=== PATIENT | female | born 1975 | race Caucasian/White ===

== ENCOUNTER 2016-09-14 17:19 | Observation (INO) ==
[2016-09-14] MEDS ORDERED: predniSONE 20 MG TABLET PO ONE (17:39)
[2016-09-14] MEDS ORDERED: Ipratropium/Albuterol Neb 3 ML IH ONE (17:39)
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
[2016-09-14] MEDS ORDERED: Albuterol Neb 0.63 MG/3 ML VIAL IH ONE (18:44)
[2016-09-14] MEDS ORDERED: Ipratropium/Albuterol Neb 3 ML ONE ×2 (18:47→18:51)
[2016-09-14 19:30] LABS: Basophils # 0.1 K/mcL (0.0-0.2); Eosinophils # 0.3 K/mcL (0.0-0.6); Eosinophils % 2.6 %; Hematocrit 40.2 % (35.3-44.9); Immature Granulocytes % 0.3 % (0-4); Lymphocytes # 2.9 K/mcL (0.6-4.6); Lymphocytes % 28.5 %; Mean Corpuscular HGB Conc 32.3 g/dL (31.6-35.5); Mean Corpuscular Hemoglobin 28.7 pg (28.0-33.3); Mean Corpuscular Volume 88.7 fL (83.0-100.0); Mean Platelet Volume 10.3 fL (9.4-12.4); Monocytes # 0.7 K/mcL (0.0-1.3); Monocytes % 6.8 %; Neutrophils # 6.2 K/mcL (1.6-8.9); Platelet Count 304 K/mcL (140-400); Red Blood Count 4.53 M/mcL (3.82-4.97); Segmented Neutrophils % 60.8 %
[2016-09-14 19:42] LABS: BUN/Creatinine Ratio 12 (6-26); Blood Urea Nitrogen 9 mg/dL (7-20); Calcium 9.1 mg/dL (8.6-10.8); Carbon Dioxide 25 mEq/L (19-29); Chloride 104 mEq/L (98-109); Glucose 94 mg/dL (70-99); Osmolality,Calculated 286 (280-300); Potassium 3.8 mEq/L (3.5-4.5); Sodium 139 mEq/L (136-145); eGFR For African Americans > 60 (> 60); eGFR For Non-African Americans > 60 (> 60)
[2016-09-14] MEDS ORDERED: Naloxone 0.4 MG/ML INJ IVP PRN (21:31)
[2016-09-14] MEDS ORDERED: Albuterol 2.5 MG/3 ML NEBULIZER IH PRN (21:31)
[2016-09-14] MEDS ORDERED: *HR* Promethazine 25 MG/ML VIAL IVP PRN (21:31)
[2016-09-14] MEDS ORDERED: Magnesium Sulfate 2 GM in D5% in Water 100 ML IVPB ONE (21:31)
[2016-09-14] MEDS ORDERED: Benzonatate 100 MG CAPSULE PO PRN (21:31)
[2016-09-14] MEDS ORDERED: Acetaminophen 325 MG TABLET PO PRN (21:31)
[2016-09-14] MEDS ORDERED: Dextromethorphan Polistrx(12h) 30 MG/5 ML UDC PO STA (21:31)
[2016-09-14] MEDS ORDERED: Ketorolac 30 MG/ML VIAL IVP PRN (21:44)
[2016-09-14] MEDS ORDERED: Melatonin 3 MG TABLET PO SCH (21:45)
[2016-09-14] MEDS ORDERED: 0.9 % Sodium Chloride 1,000 ML IVC SCH (21:45)
--- NOTE | 2016-09-14 21:49 | Internal Med History&Physical ---
Date of Encounter: 09/15/16 Time of Encounter: 22:00 Assessment and Plan (1) Acute respiratory failure with hypoxia Current visit: Yes Status: Acute . (2) Acute exacerbation of COPD with asthma Current visit: Yes Status: Acute . (3) Acute bronchitis and bronchiolitis Current visit: Yes Status: Acute . (4) Tobacco abuse disorder Current visit: Yes Status: Acute . (5) Polysubstance abuse Current visit: Yes Status: Acute . (6) Asthma exacerbation Current visit: Yes Status: Acute . (7) SIRS (systemic inflammatory response syndrome) Current visit: Yes Status: Acute . Internal Medicine - H&P: HPI Chief complaint: Difficulty breathing Admitted From: Emergency Dept Plans for Post Hospital Care: Home History of present illness: Ms. Barbour is a 41 year old female with history significant for polysubstance abuse/IVDU and non-IVDU, h/o seizure dis unspecified, MSK/low back pain/deg osteoarthritis, RAD/asthma, nicotine dependency admitted to [facility] via the emergency department when she presents with complaints of a persistent cough and difficulty in breathing. She reported a presentation a three-day history of severe intermittently productive cough and myalgias . Denied overt fever, chills sweats vomiting or diarrhea. All wheezing was apparent to her. Sputum has been predominantly white but has thickened then became more yellowish of late. No blood seen in sputum. Findings started the patient afebrile at 97.1 degree Fahrenheit pulse 85 respirations 18 BP 96/52 O2 saturation 91-96% by pulse oximetry room air. WBC 10.2 hemoglobin 13 platelets 304,000. Differential normal. Basic metabolic panel normal. BUN 9 creatinine 0.73. Chest x-ray demonstrated no acute or active cardiopulmonary process. Pulmonary impressions suggest acute exacerbation of chronic obstructive pulmonary disease with asthmatic bronchitis. This in the setting of chronic tobacco usage noncompliance with the previous prescribed bronchodilator therapy and smoking cessation recommendations. He was acutely ill with conversational dyspnea. Systemic inflammatory response syndrome criteria and however is not met at the time of this admission nor his sepsis criteria. Work up and treatment will proceed comprehensively. The patient was visited and interviewed and examined. Cumulative laboratory and radiographic data base will be considered and discussed. Pertinent ancillary medical records including ECW and PCI documentation when available was reviewed and considered. Given the patient's presenting concerns, past medical history, clinical findings and symptoms, she is admitted at this time will undergo further evaluation and disposition. Orders were written as per Computerized physician emergency room orderly system.......................................................................... .................... Consultative opinion will be sought as clinical circumstances justify. Pain management needs will be addressed. Laboratory /radiographic data base will be updated as appropriate. Studies include: Cultures of blood urine sputum, urine HCG, pt/inr, aptt, cardiac injury panel, BNP, UA, UDS, metabolic and hematologic panel, magnesium, phosphorus, ionized calcium, thyroid panel, lipid profile, A1c, C-peptide, CRP, sedimentation rate, respiratory infection profile, respiratory virus panel, blood gas, lactic acid, serologies, etc. Precautions: Aspiration, fall, delirium protocol/surveillance initiated. Telemetry with continuous hemodynamic monitoring and pulse oximetry initiated. Empiric antibody coverage: Intravenous Doxycycline pending culture data. Special studies: CT/CTA chest, chest x-ray, telemetry, EKG. Pulmonary toilet: Incentive spirometry, aerosol bronchodilator, mucolytic, antitussive, supplemental oxygen. Corticosteroid therapy. CPAP/BiPAP supplemental oxygen delivery PRN. Aerosol Mucomyst therapy PRN. Fluid and electrolyte repletion efforts will proceed. Careful attention to fluid balance and renal recovery will be emphasized. Avoidance of nephrotoxic exposure and adverse drug drug interaction in the setting of impaired renal function will be monitored closely. Acute coronary syndrome protocol/surveillance initiated. DVT and PUD prophylaxis initiated: PPI therapy, intermittent pneumatic cuffs/ TEDs. Subcutaneous heparin/Lovenox. Early ambulation will be encouraged. Immunization updates recommended. Influenza and pneumococcal vaccinations as part of ongoing preventative healthcare recommendations strongly recommended. Smoking cessation counseling briefly addressed. Patient will except nicotine substitution during this admission.. Advanced care directive discussion briefly addressed. Patient does not declare any healthcare restrictions at this time. Cardiovascular risk appraisal and cardiovascular risk reduction efforts will be emphasized. Physical /occupational therapy may be counseled to evaluate patient's functional capacity and progressive mobility if her circumstances justify. Sliding scale insulin coverage, ADA dietary restraint and schedule an as-needed basis fingerstick glucose assessments were initiated. Nutrition/diabetes education counseling may be considered as circumstances justify. Outpatient medication schedules will be reviewed, confirmed and facilitated as appropriate. Reconciliation of home treatments including adjustments, substitutions and reintroduction into the treatment regimen will address necessary maintenance therapies for chronic pre-existing medical conditions. Plan of care has been reviewed and discussed in detail with the patient. Questions addressed. Hospital course dictated by clinical findings, treatment response and potential consultative interventions. Patient is a risk for further acute clinical decline due to her findings, chief complaints and comorbid conditions. Condition is serious. Prognosis is guarded. CODE STATUS is full. Past Med Surg Social Fam HX - Past Medical History Source: old records reviewed Medical history: arthritis, asthma, seizures, other (History of drug abuse, opiate-type dependence (non-IVDU and IVDU).) Psychiatric history: other - Past Surgical History Surgical History: , cholecystectomy, other - Social History Smoking Status: Current every day smoker Smokeless Tobacco Status: No Alcohol use: none Drug use: opiates, IVDU, other Occupational status: unemployed Current living situation: Home, With Family Activity Level: Independent ambulation, Mostly sedentary Recent Out of Country Travel Within the Last 8 Weeks: No Exposure or Possible Exposure to Illness During Travel: No - Family History Father Living Status: Still Living Hx Family Cardiac Disorders: Yes Hx Family Respiratory Disorders: Yes (copd) Internal Medicine - H&P: Meds Albuterol Sulfate [Albuterol Inhaler] 2 puff IH Q4HR PRN #1 hfa.aer.ad 09/14/16 [Rx] Buprenorphine HCl/Naloxone HCl [Suboxone 8 mg-2 mg Sl Film] 8 mg SL BID [History] PredniSONE 60 mg PO DAILY #15 tablet 09/14/16 [Rx] Allergies Penicillins [PCN] Allergy (Verified 08/16/16 02:44) Anaphylaxis All Systems PM: A 10-system review of systems was performed and is negative for pertinent findings except as documented above in the HPI. Allergies Allergy/AdvReac Type Severity Reaction Status Date / Time Penicillins [PCN] Allergy Anaphylaxis Verified 08/16/16 02:44 Patient Problems (Last Updated 09/14/16 @ 21:49 by Wilmer Stephens MD) Acute bronchitis and bronchiolitis (Acute Medical) J20.9, J21.9 Acute exacerbation of COPD with asthma (Acute Medical) J44.1, J45.901 Acute respiratory failure with hypoxia (Acute Medical) J96.01 Asthma exacerbation (Acute Medical) J45.901 Bronchitis (Acute Medical) J40 Tobacco abuse disorder (Acute Medical) Z72.0 Abscess of skin or subcutaneous tissue (Inactive Medical) L02.91 Drug abuse (Inactive Medical) F19.10 Low back pain (Inactive Medical) M54.5 Opiate withdrawal (Inactive Medical) F11.23 Seizure-like activity (Inactive Medical) R56.9 Vomiting (Inactive Medical) R11.10 - Constitutional Constitutional: as per HPI, fatigue, malaise, other, no chills, no fever(s), no night sweats - EENT Eyes: as per HPI, no change in vision, no discharge, no pain, no photophobia Ears: as per HPI, no ear discharge, no ear pain, no tinnitus Nose, mouth and throat: as per HPI, no dysphagia, no nasal discharge, no neck pain, no sore throat - Cardiovascular Cardiovascular ROS IM: as per HPI, no chest pain, no diaphoresis, no dyspnea, no lightheadedness, no palpitations, no syncope - Respiratory Respiratory: as per HPI, cough, dyspnea, dyspnea on exertion, wheezing, chest congestion, excessive phlegm production, change in phlegm color, other, no hemoptysis - Gastrointestinal Gastrointestinal: as per HPI, no abdominal pain, no diarrhea, no hematemesis, no hematochezia, no melena, no nausea, no vomiting - Genitourinary Genitourinary: as per HPI, no change in urinary stream, no dysuria, no flank pain, no hematuria - Musculoskeletal Musculoskeletal ROS IM: as per HPI, no numbness, no tingling - Integumentary Integumentary IM: as per HPI, no rash, no unusual bruising - Neurological Neurological ROS: as per HPI, no confusion, no convulsions, no focal weakness, no numbness, no tingling, no tremor(s) - Psychiatric Psychiatric: as per HPI - Endocrine Endocrine IM: as per HPI - Hematologic/Lymphatic Hematologic/Lymphatic: as per HPI, no easy bruising - Allergic/Immunologic Allergic/Immunologic: as per HPI - Constitutional Vitals: Temp Pulse Resp BP Pulse Ox 97.6 F 86 18 106/69 92 09/14/16 21:19 09/14/16 21:19 09/14/16 21:19 09/14/16 21:19 09/14/16 21:19 Vital Signs Temp Pulse Resp BP Pulse Ox 09/14/16 21:19 97.6 F 86 18 106/69 92 09/14/16 20:55 18 105/55 09/14/16 20:45 86 18 108/64 94 09/14/16 19:47 85 18 96/52 96 09/14/16 18:53 20 91 09/14/16 18:04 18 93/53 91 09/14/16 17:26 98.1 F 83 18 93/53 91 Intake and Output 09/14/16 09/14/16 09/14/16 07:59 15:59 23:59 Other: Weight 63.503 kg Patient Weight 09/14/16 23:59 Weight 63.503 kg General appearance: Present: disheveled, mild distress, A&O X 3, answers questions appropriately - Head Head exam: Present: atraumatic, normocephalic - Eye Eye exam: Present: EOMI, PERRL, conjuntiva pink, sclera anicteric Pupils: Present: normal accommodation, PERRL - ENT ENT exam: Present: mucous membranes moist, normal oropharynx - Neck Neck exam general surgery: Present: supple, trachea midline. Absent: lymphadenopathy - Respiratory Respiratory exam: Present: chest wall tenderness, decreased breath sounds, rhonchi, wheezes. Absent: accessory muscle use, CTAB, rales - Cardiovascular Cardiovascular exam: Present: distant heart sounds, RRR, +S1, +S2. Absent: diastolic murmur, gallop, rubs, systolic murmur - GI/Abdominal GI/Abdominal exam: Present: normal bowel sounds, soft, no peritoneal signs. Absent: distended, tenderness - Extremities Exam Extremities exam: Present: warm, radial pulses palpable and symetrical. Absent : calf tenderness, cyanotic, pedal edema - Neurological Exam Neurological exam: Present: alert, altered, CN II-XII intact, oriented X3, no focal deficits. Absent: pronater drift, facial droop, speech deficit - Expanded Neurological Exam Neurological exam expanded: Present: inattentive, protecting the airway. Absent : expressive aphasia, receptive aphasia, tremor Patient oriented to: Present: person, place, time Speech: Present: garbled Coma Scale Eye Opening: To Voice Coma Scale Motor Response: Obeys Commands Coma Scale Verbal Response: Confused Coma Scale Total: 13 - Psychiatric Psychiatric exam: Present: normal affect, normal mood - Skin Skin exam: Present: dry, intact, warm Internal Med - H&P Results - Labs CBC & Chem 7: 09/15/16 05:29 09/15/16 05:29 Labs: Short CBC 09/14/16 Range/Units 19:23 WBC 10.2 (4.3-11.1) K/mcL Hgb 13.0 (11.5-15.4) g/dL Hct 40.2 (35.3-44.9) % Plt Count 304 (140-400) K/mcL Neutrophils # 6.2 (1.6-8.9) K/mcL BMP 09/14/16 Range/Units 19:23 Sodium 139 (136-145) mEq/L Potassium 3.8 (3.5-4.5) mEq/L Chloride 104 (98-109) mEq/L Carbon Dioxide 25 (19-29) mEq/L BUN 9 (7-20) mg/dL Creatinine 0.73 (0.57-1.11) mg/dL Glucose 94 (70-99) mg/dL Calcium 9.1 (8.6-10.8) mg/dL Laboratory Results WBC 10.2 K/mcL (4.3-11.1) 09/14/16 19:23 RBC 4.53 M/mcL (3.82-4.97) 09/14/16 19:23 Hgb 13.0 g/dL (11.5-15.4) 09/14/16 19:23 Hct 40.2 % (35.3-44.9) 09/14/16 19:23 MCV 88.7 fL (83.0-100.0) 09/14/16 19:23 MCH 28.7 pg (28.0-33.3) 09/14/16 19:23 MCHC 32.3 g/dL (31.6-35.5) 09/14/16 19:23 RDW 13.0 % (11.5-14.5) 09/14/16 19:23 Plt Count 304 K/mcL (140-400) 09/14/16 19:23 MPV 10.3 fL (9.4-12.4) 09/14/16 19:23 Immature Gran % 0.3 % (0-4) 09/14/16 19:23 Seg Neutrophils % 60.8 % 09/14/16 19:23 Lymphocytes % 28.5 % 09/14/16 19:23 Monocytes % 6.8 % 09/14/16 19:23 Eosinophils % 2.6 % 09/14/16 19:23 Basophils % 1.0 % 09/14/16 19:23 Neutrophils # 6.2 K/mcL (1.6-8.9) 09/14/16 19:23 Lymphocytes # 2.9 K/mcL (0.6-4.6) 09/14/16 19:23 Monocytes # 0.7 K/mcL (0.0-1.3) 09/14/16 19:23 Eosinophils # 0.3 K/mcL (0.0-0.6) 09/14/16 19:23 Basophils # 0.1 K/mcL (0.0-0.2) 09/14/16 19:23 Sodium 139 mEq/L (136-145) 09/14/16 19:23 Potassium 3.8 mEq/L (3.5-4.5) 09/14/16 19:23 Chloride 104 mEq/L (98-109) 09/14/16 19:23 Carbon Dioxide 25 mEq/L (19-29) 09/14/16 19:23 BUN 9 mg/dL (7-20) 09/14/16 19:23 Creatinine 0.73 mg/dL (0.57-1.11) 09/14/16 19:23 Est GFR ( Amer) > 60 (> 60) 09/14/16 19:23 Est GFR (Non-Af Amer) > 60 (> 60) 09/14/16 19:23 BUN/Creatinine Ratio 12 (6-26) 09/14/16 19:23 Glucose 94 mg/dL (70-99) 09/14/16 19:23 Calculated Osmolality 286 (280-300) 09/14/16 19:23 Calcium 9.1 mg/dL (8.6-10.8) 09/14/16 19:23 Impressions Chest X-Ray 09/14/16 17:39 IMPRESSION: No acute process. D/ / Garcia Azar MD / Garcia Azar MD Interpreting Provider: Garcia Azar MD 09/15/16 05:29 VBG pH 7.51 H VBG pCO2 30 L VBG pO2 202 H VBG HCO3 23.9 Abnormal Labs 09/15/16 09/15/16 09/15/16 05:00 05:29 05:29 WBC 14.4 H Neutrophils # 12.7 H VBG pH 7.51 H VBG pCO2 30 L VBG pO2 202 H Potassium Carbon Dioxide Glucose Albumin Globulin Albumin/Globulin Ratio Ur Amphetamines Screen Positive H U Benzodiazepines Scrn Positive H U Marijuana (THC) Screen Positive H 09/15/16 05:29 WBC Neutrophils # VBG pH VBG pCO2 VBG pO2 Potassium 5.2 H D Carbon Dioxide 16 L Glucose 126 H Albumin 2.9 L Globulin 3.9 H Albumin/Globulin Ratio 0.7 L Ur Amphetamines Screen U Benzodiazepines Scrn U Marijuana (THC) Screen - Attending Attestation Allergies Penicillins [PCN] Allergy (Verified 08/16/16 02:44) Anaphylaxis Home Medications Medication Instructions Recorded Confirmed Type Buprenorphine HCl/Naloxone HCl 8 mg SL BID 09/14/16 09/14/16 History [Suboxone 8 mg-2 mg Sl Film] Prescriptions Medication Instructions Recorded Type Albuterol Sulfate [Albuterol 2 puff IH Q4HR PRN #1 hfa.aer.ad 09/14/16 Rx Inhaler] PredniSONE 60 mg PO DAILY #15 tablet 09/14/16 Rx I & O 09/11/16 09/12/16 09/13/16 09/14/16 23:59 23:59 23:59 23:59 Weight 63.503 kg Medications Discontinued Medications Albuterol Sulfate (Accuneb) 0.63 mg IH ONCE ONE Stop: 09/14/16 18:45 Last Admin: 09/14/16 18:52 Dose: Albuterol/Ipratropium (Duoneb) 9 ml IH ONCE ONE PRN Reason: Protocol Stop: 09/14/16 17:40 Last Admin: 09/14/16 18:15 Dose: 9 ml Albuterol/Ipratropium (Duoneb) Confirm Administered Dose 3 ml .ROUTE .STK-MED ONE Stop: 09/14/16 18:48 Last Admin: 09/14/16 18:52 Dose: 3 ml Albuterol/Ipratropium (Duoneb) Confirm Administered Dose 3 ml .ROUTE .STK-MED ONE Stop: 09/14/16 18:52 Last Admin: 09/14/16 21:42 Dose: Prednisone (Prednisone) 60 mg PO ONCE ONE Stop: 09/14/16 17:40 Last Admin: 09/14/16 18:06 Dose: 60 mg Microbiology Results 09/14/16 17:38 Nasopharyngeal Influenza Types A,B Antigen (ELAINA) - Final Nursing Notes 09/14/16 18:59 Nurse Note by Kajal Carlin RN gave report to Doug COLEMAN who is assuming care of pt at this time. Initialized on 09/14/16 18:59 - END OF NOTE Orders 09/14/16 17:38 Flu Antigen [Influenza A/B Antigen] [VIR] Stat Comment: ELAINA Source: Nasopharyngeal Specimen: Send someone from the department to collect Specimen Description: 09/14/16 17:39 XR chest 1V portable [XR] Stat Mode Of Transportation: Stretcher Reason For Exam: cough, dyspnea Order Doctor: Gunnar Yee Exam Performed At:: [facility] Ipratropium/Albuterol Neb [Duoneb] 9 ml IH ONCE ONE PredniSONE 60 mg PO ONCE ONE 09/14/16 18:44 Albuterol Neb [AccuNeb] 0.63 mg IH ONCE ONE 09/14/16 18:47 Ipratropium/Albuterol Neb [Duoneb] 3 ml .ROUTE .STK-MED ONE 09/14/16 18:51 Ipratropium/Albuterol Neb [Duoneb] 3 ml .ROUTE .STK-MED ONE 09/14/16 19:[address] Stat Comment: Reason for Visit: asthma exacerbation with bronchitis 09/14/16 19:23 BMP [Basic Metabolic Panel] Stat Comment: Specimen: Send someone from the department to collect Complete Blood Count [HEME] Stat Comment: Specimen: Send someone from the department to collect 09/14/16 21:31 Apply anti-embolic stockings [RC] .NOW Aspiration precautions [RC] .CONTINUOUS BIPAP [RC] PRN Continuous pulse oximetry [RC] .ONCE Comment: Falls precautions ([place] [RC] ONCE Incentive Spirometry [RC] .6 TIMES PER HR WHILE AWAKE Vital Signs Assessment [RC] Q4H C-Reactive Protein Stat Specimen: Send someone from the department to collect Comment: Drug Screen, Urine [UCHEM] Stat Specimen: Pre-Collection Label Comment: Lactic Acid ([facility] Only) Stat Specimen: Send someone from the department to collect Comment: Respiratory Infection Panel [MOLMIC] Stat Specimen: Send someone from the department to collect Urinalysis reflex Microscopic [URIN] Stat Specimen: Send someone from the department to collect Comment: Venous Blood Gas Stat Specimen: Send someone from the department to collect Comment: Viral Culture,Respiratory [RM] Stat Specimen: Send someone from the department to collect Comment: ELAINA Source: Nasopharyngeal Specimen Description: Acetaminophen [Tylenol] 650 mg PO Q6HR PRN Albuterol Neb [Proventil Neb] 2.5 mg IH Q2H PRN Benzonatate [Tessalon] 200 mg PO TID PRN Dextromethorphan Polistrx(12h) [Delsym 12-HR] 60 mg PO NOW STA Docusate [Colace] 100 mg PO BID PRN GuaiFENesin ER [Mucinex] 1,200 mg PO ONCE ONE Magnesium Sulfate 2 gm D5% in Water [Dextrose 5%] 100 ml IVPB ONCE Naloxone [Narcan] 0.4 mg IVP Q2MIN PRN Promethazine [Phenergan] 12.5 mg IVP Q6HR PRN Resuscitation Status: Active [RES] Routine Resuscitation Status: Full Code Comment: 09/14/16 21:32 COPD Discharge Checklist [RC] .atdischarge Cardiac monitoring [RC] .ONCE Cardiac monitoring [RC] CONT Head of bed elevation [RC] .ONCE Oxygen via nasal cannula Nasal Cannula 2 lpm Comment: Notify provider if oxygen initiated. Titrate O2 to main O2 sat greater than: 92% Peripheral IV [RC] CONT Consult to Nurse Navigator [CONS] Routine Comment: Consult to Nurse Navigator [CONS] Routine Comment: 09/14/16 21:33 Placement to Observation Routine Physician Instructions: Reason for Visit: Difficulty breathing Is VTE Prophylaxis Indicated?: Yes 09/14/16 21:35 Bed rest [RC] .CONT Physician Instructions: Bed rest w/bathroom privileges [RC] .PRN Cardiac Monitoring Med/Surg [RC] .CONT Telemetry Reason: ACS/CP Continuous pulse oximetry [RC] CONT Comment: Measure intake and output [RC] QSHIFT Measure weight [RC] DAILY Oxygen via nasal cannula Nasal Cannula 2 lpm Comment: Titrate O2 to main O2 sat greater than: 92% RT has an order or consult [RC] NOW 09/14/16 21:40 BIPAP/CPAP On/Off Times [RC] ONCE 09/14/16 21:44 Ketorolac [Toradol] 30 mg IVP Q6HR PRN 09/14/16 21:45 HCG,Routine Test Stat Specimen: Send someone from the department to collect Comment: 0.9 % Sodium Chloride 1,000 ml IVC 50 mls/hr Buprenorphine HCl/Naloxone HCl [Suboxone 8 mg-2 mg Sl Film] 8 mg SL BID How will this medication be supplied?: Pharmacy to Subsitute Doxycycline 100 mg PO BID Melatonin 3 mg PO HS Montelukast [Singulair] 10 mg PO HS Nicotine Patch [Nicoderm] 21 mg TD DAILY 09/14/16 23:00 Ipratropium/Albuterol Neb [Duoneb] 3 ml IH QIDR 09/14/16 Dinner Regular Diet Diet Modifications: 09/15/16 04:00 Complete Blood Count [HEME] AM 0400 Specimen: Send someone from the department to collect Comment: Comprehensive Metabolic Panel AM 0400 Specimen: Send someone from the department to collect Comment: Magnesium AM 0400 Specimen: Send someone from the department to collect Comment: Phosphorous AM 0400 Specimen: Send someone from the department to collect Comment: 09/15/16 09:00 Famotidine [Pepcid] 20 mg PO BID GuaiFENesin ER [Mucinex] 600 mg PO BID PredniSONE 40 mg PO DAILY Patient Problems (Last Updated 09/14/16 @ 17:47 by Gunnar Yee DO) Asthma exacerbation (Acute) Bronchitis (Acute) Vital Signs Temp Pulse Resp BP Pulse Ox 09/14/16 21:19 97.6 F 86 18 106/69 92 09/14/16 20:55 18 105/55 09/14/16 20:45 86 18 108/64 94 09/14/16 19:47 85 18 96/52 96 09/14/16 18:53 20 91 09/14/16 18:04 18 93/53 91 09/14/16 17:26 98.1 F 83 18 93/53 91 Laboratory Results 09/14/16 09/14/16 Range/Units 19:23 19:23 WBC 10.2 (4.3-11.1) K/mcL RBC 4.53 (3.82-4.97) M/mcL Hgb 13.0 (11.5-15.4) g/dL Hct 40.2 (35.3-44.9) % MCV 88.7 (83.0-100.0) fL MCH 28.7 (28.0-33.3) pg MCHC 32.3 (31.6-35.5) g/dL RDW 13.0 (11.5-14.5) % Plt Count 304 (140-400) K/mcL MPV 10.3 (9.4-12.4) fL Immature Gran % 0.3 (0-4) % Seg Neutrophils % 60.8 % Lymphocytes % 28.5 % Monocytes % 6.8 % Eosinophils % 2.6 % Basophils % 1.0 % Neutrophils # 6.2 (1.6-8.9) K/mcL Lymphocytes # 2.9 (0.6-4.6) K/mcL Monocytes # 0.7 (0.0-1.3) K/mcL Eosinophils # 0.3 (0.0-0.6) K/mcL Basophils # 0.1 (0.0-0.2) K/mcL Sodium 139 (136-145) mEq/L Potassium 3.8 (3.5-4.5) mEq/L Chloride 104 (98-109) mEq/L Carbon Dioxide 25 (19-29) mEq/L BUN 9 (7-20) mg/dL Creatinine 0.73 (0.57-1.11) mg/dL Est GFR ( Amer) > 60 (> 60) Est GFR (Non-Af Amer) > 60 (> 60) BUN/Creatinine Ratio 12 (6-26) Glucose 94 (70-99) mg/dL Calculated Osmolality 286 (280-300) Calcium 9.1 (8.6-10.8) mg/dL Assessments/Treatments Collect Specimen Start: 09/14/16 17: 30 Freq: Status: Complete Document 09/14/16 17:41 [id number] (Rec: 09/14/16 17:46 [id number]) Collect Specimen Right Nasal culture/flu swab collected as Yes ordered Specimen(s) labled in presence of Yes patient Specimen sent to lab via Tube system ED Discharge Assessment Start: 09/14/16 17: 30 Freq: Status: Active Document 09/14/16 20:55 KJB (Rec: 09/14/16 20:57 [id number]) ED Discharge Assessment ED Discharge Disposition Admitted ED Condition on Discharge Fair Med Rec/Patient Pharmacy Completed? Yes Admitted to 3B Bed assigned 3B39 Transported by wound care technician Transported with IV Report given to Nurse Care transferred to (name/credentials) Marcio RN Information relayed patient's care treatments medications given condition recent/anticipated changes Clinical Documentation Summary Provided Yes Pain Scale 0 Pain Scale Used Standard (1-10) Blood Pressure 105/55 Heart rate 85 Respiratory Rate 18 Oxygen Delivery Nasal Cannula Oxygen Saturation 94 Critical Care Minutes 0 ED Pain Assessment Start: 09/14/16 17: 30 Freq: Status: Complete Document 09/14/16 17:41 [id number] (Rec: 09/14/16 17:46 [id number]) Pain Assessment Pain Present Reports No Pain ED URI/Sore Throat Assessment Start: 09/14/16 17: 30 Freq: Status: Complete Document 09/14/16 17:41 [id number] (Rec: 09/14/16 17:46 [id number]) URI/Sore Throat Sepsis Infection Criteria Present suspected infection Sepsis SIRS Criteria none Sepsis Screen No Definite Risk Sepsis Action Taken no action required Symptoms/Complaint Fever Cough Sore Throat Onset couple days Duration Constant Improves With Nothing Worsens With Nothing Able to Tolerate Fluids By Mouth Yes Associated Symptoms Chills Myalgias Treatments Prior to Arrival None Level Of Consciousness Awake Alert Appropriate Follows Commands Patient Orientation Person Place Time Respiratory Depth Normal Respiratory Effort Normal for Patient Spontaneous Non-Labored Respiratory Pattern Regular Anterior & Posterior Bilateral Throughout Breath Sounds Diminished Expiratory Wheezing Cough Description Involuntary Productive Frequency Intermittent Sputum Amount Scant Oropharynx Condition Normal [place] and Moist Smooth Exudate ED Comment Pt states that she has had generalized body aches as well . Fall Precautions Acute Start: 09/14/16 21: 05 Freq: Q12H Status: Active Document 09/14/16 21:05 CEP (Rec: 09/14/16 21:17 [id number] [id number]) [facility] Fall Risk Assessment Tool High Fall Risk-Implement High Fall Risk Patient is deemed high fall interventions per protocol risk per protocol (seizure precaution) Fall Risk Category High Risk Fall Risk Interventions Low Risk Interventions Bed in lowest position Top side rails up x 2 Secure brake on bed Use properly fitting non-skid footwear Call light and frequently needed objects within reach Encourage patients/families to call for assistance when needed Fall education including risk assessment, injury risk and routine/ Inspect environment for safety and communication risk Family History-Meaningful Use Start: 09/14/16 21: 05 Freq: .Once Status: Active Document 09/14/16 21:05 [facility] (Rec: 09/14/16 21:12 [id number] Family History-Meaningful Use Father Living Status Still Living Hx Family Cardiac Disorders Yes Hx Family Respiratory Disorders Yes: copd IV-Invasive Line Management Start: 09/14/16 21: 05 Freq: Q8H Status: Active Document 09/14/16 21:05 [facility] (Rec: 09/14/16 21:18 [id number] IV/Invasive Line Assessment Left Antecubital Date of Insertion 09/14/16 Time of Insertion 20:53 Reason for Line Insertion/Rationale for Replace Lost Fluids Insertion Provide Access for IV Medication(s) Gauge (gauge) 18 IV Catheter Type Peripheral IV Site Observation Patent Cowley Dressing Applied Transparent Dressing Line Care P-Locked Labs drawn from Line* No Observation Admission Assessment Start: 09/14/16 21: 05 Freq: .once Status: Active Document 09/14/16 21:05 [facility] (Rec: 09/14/16 21:12 [id number]) General Questions Date of Arrival on Unit 09/14/16 Time of Arrival on Unit 21:07 Admitted From Emergency Dept Chief Complaint brianne Onset of Chief Complaint 09/11/16 History Provided By Patient Orientation To Call Light Bed Phone TV Bathroom Smoking Policy Visiting Hours Procedures ID Bracelet On Emergency Contact Name kade kauffman Relationship to Patient mom Emergency Contact Bands applied ID band Allergy band Patient Health Portal Patient was provided information on Yes accessing patient portal Patient Requests Portal Enrollment No Reason No Portal Enrollment Patient Declines Advance Directives Advance Directives No Advance Directives Information Provided Yes Patient Rights Copy of Rights Given and Verbalizes Yes Understanding Tobacco Free [place]: Copy of AHS Yes Statement Given and Patient Verbalizes Understanding Communication Ability Primary Language Citizen Of The [place] Preferred Language Citizen Of [place] Coil Winder Repair Required No Ability to Follow Directions Excellent Able to Read Yes Able to Write Yes Communication Tools None Caregiver Communication Skills No Impairment Impairment Learning Preferences Discussion Hearing Ability Normal Visual Assistive Devices None Pain Assessment Do You Have Any Ongoing (Chronic) Pain No Problems Educated on Pain Scale Yes Past Medical History Medical history asthma seizures other Female Surgical History cholecystectomy Psychiatric history no psych history Smoking Status Current every day smoker Smokeless Tobacco Status No Alcohol use none Drug use opiates IVDU Occupational status employed Current living situation Home With Family Activity level Independent ambulation Recent Out of Country Travel Within the No Last 8 Weeks Exposure or Possible Exposure to Illness No During Travel Functional Assessment Employment Status [employer] Employed Eating (Feeding) Ability Independent Bathing Ability Independent Upper Body Dressing Ability Independent Lower Body Dressing Ability Independent Ambulation Ability Independent Toileting Ability Independent Bladder Continent Bowel Continent Normal Bowel Pattern Daily Psychosocial Over Age 75 and Lives Alone or Over Age No 80 Potential Need for Follow-up Care (ECF, No Home Health, ECT) Developmentally Disabled or History of No Mental Health Problems Diagnosis with Director Blood Bank Need or No Terminal Implications Responsible for Care of Others No Financial Concerns No Suspected Abuse or Neglect No Suicidal or Homicidal Ideation No Social Service Consult Needed No Oxygen administration Start: 09/14/16 21: 05 Freq: Q12H Status: Active Document 09/14/16 21:05 [facility] (Rec: 09/14/16 21:18 [id number] Oxygen Oxygen Delivery Method Room Air Patient Belongings Start: 09/14/16 21: 05 Freq: .ONCE Status: Active Document 09/14/16 21:05 [facility] (Rec: 09/14/16 21:12 [id number] Patient Belongings Belongings With Patient on Admission Yes At Bedside Patient Belongings Cell Phone Jewelry Pants Shirt Sneakers Patient Rounding Start: 09/14/16 17: 30 Freq: Status: Active Document 09/14/16 19:47 KJB (Rec: 09/14/16 19:49 KJB [id number]) Patient Rounding Safety Call Light Within Reach Bed Position Low Bed Brake On Side Rails Up X1 Are the Floors Free From Trip Hazards? Yes Is the Room Free From Clutter? Yes Rounding Completed? Yes Patient Rounding Updated patient/family on Plan of Care Patient Awake Patient Verbalizes Pain/Symptoms No Improvement Patient Rounding Start: 09/14/16 21: 05 Freq: Q1H Status: Active Document 09/14/16 21:05 CEP (Rec: 09/14/16 21:23 CEP [id number]) Hourly Rounding Hourly Rounding Checked for Patient Positioning Patient Personal Items Placed Within Reach Hourly Rounding Completed Yes Patient Awake Is family present? Yes Comment got patient snacks and drink Safety Call Light Within Reach Bed Position Low Phone Within Reach Bed Brake On Side Rails Up X2 Are the Floors Free From Trip Hazards? Yes Is the Room Free From Clutter? Yes Turn and Postion Bedrest No Turn Q 2HR No RT Respiratory Medication Delivery Start: 09/14/16 18: 04 Freq: Status: Complete Document 09/14/16 18:04 CD (Rec: 09/14/16 18:05 CD [id number]) Respiratory Therapy Pre Assessment SPO2 91 Heart rate 91 Respiratory Rate 18 BP (mm Hg) 93/53 Oxygen Delivery Method Room Air Anterior & Posterior Bilateral Throughout Breath Sounds Inspiratory Rhonchi Expiratory Rhonchi Scattered Treatment Modality Nebulizer Therapy Respiratory Medications Duoneb Home/Other Medication x3 Medication Delivery Device Mask Treatment Tolerance Good Sub. Aerosol/MDI/DPI Treatment* Yes Post RT Medication Delivery Post Heart rate 93 Post Respiratory Rate (breaths/min) 18 Anterior & Posterior Bilateral Throughout Post Breath Sounds Inspiratory Rhonchi Expiratory Rhonchi Scattered Treatment Outcome No Change Document 09/14/16 18:53 MTD (Rec: 09/14/16 18:54 MTD [id number]) Respiratory Therapy Pre Assessment SPO2 91 Heart rate 84 Respiratory Rate 20 Oxygen Delivery Method Room Air FIO2 21 Anterior & Posterior Bilateral Throughout Breath Sounds Diminished Expiratory Wheezing Treatment Modality Nebulizer Therapy Respiratory Medications Duoneb Medication Delivery Device Mask Treatment Tolerance Excellent Sub. Aerosol/MDI/DPI Treatment* Yes Post RT Medication Delivery Post Heart rate 88 Post Respiratory Rate (breaths/min) 20 Anterior & Posterior Bilateral Throughout Post Breath Sounds Diminished Expiratory Wheezing Treatment Outcome No Change Comment Tolerated well RT Cough/Suction Cough Description None Sputum Amount None Saline lock insertion/management Start: 09/14/16 20: 53 Freq: Status: Active Document 09/14/16 20:53 KJB (Rec: 09/14/16 20:53 KJB [id number]) IV Insertion/Site Assessment IV Attempt 1 Successful Successful Blood drawn and sent to Lab No Left Antecubital IV Established MACHINE PAN GREASER No Date of Insertion 09/14/16 Time of Insertion 20:53 Reason for IV Insertion Replace Lost Fluids Provide Access for IV Medication(s) IV Catheter Type Peripheral IV Gauge (gauge) 18 Site Observation Patent Cowley Dressing Applied Transparent Dressing Patient Tolerance Tolerated Well Sepsis Screening Start: 09/14/16 21: 05 Freq: Q8H Status: Active Document 09/14/16 21:05 [facility] (Rec: 09/14/16 21:23 [id number]) Sepsis Screening Sepsis Infection Criteria Present none Sepsis SIRS Criteria none Sepsis Screen No Definite Risk Sepsis Action Taken no action required Skin Risk Assessment Scale Start: 09/14/16 21: 05 Freq: Q12H Status: Active Document 09/14/16 21:05 [facility] (Rec: 09/14/16 21:23 [id number]) Skin Risk Assessment Scale Moisture Risk Rarely Moist Sensory Perception No Impairment Activity Risk Walks Frequently Mobility Risk No Limitations Nutrition Risk Excellent Friction & Shear Risk No Apparent Problem Skin Risk Total Score (points) 23 Teaching Record Start: 09/14/16 21: 05 Freq: Q12H Status: Active Document 09/14/16 21:05 [facility] (Rec: 09/14/16 21:23 [id number] Teaching Record: General Education Topics Hospital Environment Response Verbalize understanding Methods Discussion Recipient Patient Education Provided: Details education event management consultant light, asking for assistance as needed, hospital procedures Triage Start: 09/14/16 17: 26 Freq: Status: Complete Document 09/14/16 17:26 BDS (Rec: 09/14/16 17:30 BDS [id number]) Triage Chief Complaint triage ED Upper Respiratory Infection Patient Stated Complaint cough, body aches JAMES 4 Onset (ago) day(s) General Appearance alert Work Related Injury? No Mode of arrival ambulatory Source patient Limitations no limitations Ebola Risk: Travel/Contact With Anyone No From Affected Area/s Has Patient Experienced Ebola Symptoms No Temperature (97.6 F-99.6 F) 98.1 F Pulse Rate 83 Respiratory Rate 18 Blood Pressure 93/53 O2 Sat by Pulse Oximetry 91 Height 1.57 m Weight 63.503 kg Weight Measurement Method Stated by Patient Pain Scale 0 Pain Scale Used Standard (1-10) Medical history asthma seizures other Female surgical history cholecystectomy Psychiatric history no psych history Smoking Status Current every day smoker Smokeless Tobacco Status No Alcohol Use none Drug Use opiates IVDU Patient resides with/at Significant Other Safety Concerns Feels Safe At This Time Do you currently feel hopless, have No thoughts of self harm, or thoughts of harming others History of fall in last 14 days? 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 Vital Signs Assessment Start: 09/14/16 17: 30 Freq: Status: Active Document 09/14/16 19:47 KJB (Rec: 09/14/16 19:49 KJB [id number]) ED Vital Signs Pain Reported Pain Reported Pain Scale 2 Pain Scale Used Standard (1-10) Blood Pressure 96/52 Blood Pressure Location Right Arm Source Automatic Cuff Position Sitting Pulse Rate 85 Rhythm Regular Strength Normal Respiratory Rate 18 Depth Normal Effort Normal for Patient Spontaneous Non-Labored Pattern Regular Pulse Oximetry 96 Oxygen Delivery Room Air Document 09/14/16 20:45 KJB (Rec: 09/14/16 20:45 KJB [id number]) ED Vital Signs Pain Reported No Pain Reported Pain Scale 0 Pain Scale Used Standard (1-10) Blood Pressure 108/64 Blood Pressure Location Right Arm Source Automatic Cuff Position Sitting Pulse Rate 86 Rhythm Regular Strength Normal Respiratory Rate 18 Depth Normal Effort Normal for Patient Pulse Oximetry 94 Oxygen Delivery Nasal Cannula Oxygen Flow Rate (LPM) 3 Document 09/14/16 21:19 [id number] (Rec: 09/14/16 21:19 [id number]) Vital Signs with MEWS Temperature (97.6 F-99.6 F) 97.6 F Temperature Source Oral Pulse Rate 86 Respiratory Rate 18 Pulse Oximetry 92 Oxygen Delivery Nasal Cannula Oxygen Flow Rate (LPM) 4 Blood Pressure 106/69 Blood Pressure Location Left Arm Source Automatic Cuff Position Supine Neuro Status *recalled from last Alert documentation MEWS Score 1 Discharge Information ED Provider: Agus Cabrera Status: Departed Time Seen by Provider: 09/14/16 17:31 Condition: Good Triaged At: 09/14/16 17:26 Emergency Discharge Date/Time: 09/14/16 20:58 Emergency Discharge Disposition: Admitted As Inpatient Clinical Impression Bronchitis Asthma exacerbation Emergency Discharge Comment: Admit Intervention Last Done ED URI/Sore Throat Assessment 09/14/16 17:41 Query Result Sepsis Infection Criteria Present suspected infection Sepsis SIRS Criteria none Sepsis Screen No Definite Risk Sepsis Action Taken no action required URI/Sore Throat Symptoms/Complaint Fever Cough Sore Throat URI/Sore Throat Onset couple days URI/Sore Throat Duration Constant URI/Sore Throat Improves With Nothing URI/Sore Throat Worsens With Nothing Able to Tolerate Fluids By Mouth Yes URI/Sore Throat Associated Symptoms Chills Myalgias URI/Sore Throat Treatments Prior to None Arrival Level Of Consciousness Awake Alert Appropriate Follows Commands Patient Orientation Person Place Time Respiratory Depth Normal Respiratory Effort Normal for Patient Spontaneous Non-Labored Respiratory Pattern Regular Anterior & Posterior Bilateral Throughout -Breath Sounds Diminished Expiratory Wheezing Cough Description Involuntary Productive Cough Frequency Intermittent Sputum Amount Scant Oropharynx Condition Normal Cowley and Moist Smooth Exudate ED Comment Pt states that she has had generalized body aches as well . ED Discharge Assessment 09/14/16 20:55 Query Result ED Discharge Disposition Admitted ED Condition on Discharge Fair Med Rec/Patient Phamracy completed? Yes ED Admit to 3B Bed assigned [id number] Transported by wound care technician Transported with IV Report given to Nurse Care transferred to Marcio RN Information relayed patient's care treatments medications given condition recent/anticipated change Clinical Documentation Summary Provided Yes Severity scale (1-10) 0 Pain Scale Used Standard (1-10) Blood Pressure 105/55 Heart rate 85 Respiratory Rate 18 Oxygen Delivery Nasal Cannula Pulse Oximetry Reading 94 Critical Care Minutes 0 Observation Discharge Date/Time: Observation Discharge Disposition: Observation Discharge Comment: Instructions: Stand-Alone Forms: Prescriptions: Albuterol Sulfate [Albuterol Inhaler] Gunnar Yee PredniSONE Gunnar Yee Visit Report - Forms: - Referrals: Radiology Results Chest X-Ray 09/14/16 17:39
[2016-09-14] MEDS: Nicotine 21 MG PATCH.TD24 TD SCH (23:05)
[2016-09-14] MEDS: Doxycycline 100 MG CAPSULE PO SCH (23:05)
[2016-09-14] MEDS: SUBOXONE SL SCH (23:11)
[2016-09-14] MEDS: Ipratropium/Albuterol Neb 3 ML IH SCH (23:13)
[2016-09-14] MEDS ORDERED: Menthol 9.1 MG LOZENGE PO PRN (23:20)
[2016-09-15 01:28] LABS: Adenovirus Not Detected (Not Detect); Bordetella Pertussis Not Detected (Not Detect); Chlamydophila pneumoniae Not Detected (Not Detect); Coronavirus 229E Not Detected (Not Detect); Coronavirus HKU1 Not Detected (Not Detect); Coronavirus NL63 Not Detected (Not Detect); Coronavirus OC43 Not Detected (Not Detect); Human Metapneumovirus Not Detected (Not Detect); Human Rhinovirus/Enterovirus Not Detected (Not Detect); Influenza A Subtype 2009 H1 Not Detected (Not Detect); Influenza A Untypeable Not Detected (Not Detect); Influenza B Not Detected (Not Detect); Mycoplasma pneumoniae Not Detected (Not Detect); Parainfluenza Virus 1 Not Detected (Not Detect); Parainfluenza Virus 2 Not Detected (Not Detect); Parainfluenza Virus 3 Not Detected (Not Detect); Parainfluenza Virus 4 Not Detected (Not Detect); Respiratory Syncytial Virus Not Detected (Not Detect)
[2016-09-15] MEDS: Ipratropium/Albuterol Neb 3 ML IH SCH ×2 (04:11→10:42)
[2016-09-15 05:39] LABS: Bilirubin,Urine Negative (Negative); Blood,Urine Negative (Negative); Clarity,Urine Clear (Clear); Color,Urine Yellow (Yellow); Glucose,Urine (UA) Normal (Normal); Ketones,Urine Negative (Negative); Leukocyte Esterase,Urine Negative (Negative); Nitrite,Urine Negative (Negative); Protein,Urine Negative (Neg-Trace); Urobilinogen,Urine Normal (Normal)
[2016-09-15 05:41] LABS: VBG HCO3 23.9 mEq/L (21-27); VBG PH 7.51 pH Units (7.32-7.42)
[2016-09-15 05:42] LABS: Basophils % 0.3 %; Eosinophils % 0.1 %; Hematocrit 40.7 % (35.3-44.9); Immature Granulocytes % 0.3 % (0-4); Lymphocytes # 1.2 K/mcL (0.6-4.6); Lymphocytes % 8.3 %; Mean Corpuscular HGB Conc 31.9 g/dL (31.6-35.5); Mean Corpuscular Volume 87.5 fL (83.0-100.0); Mean Platelet Volume 11.7 fL (9.4-12.4); Monocytes # 0.3 K/mcL (0.0-1.3); Monocytes % 2.4 %; Neutrophils # 12.7 K/mcL (1.6-8.9); Platelet Count 243 K/mcL (140-400); Red Blood Count 4.65 M/mcL (3.82-4.97); Segmented Neutrophils % 88.6 %
[2016-09-15 05:44] LABS: Amphetamine Screen,Urine Positive ng/mL (Cutoff=1000); Barbiturate Screen,Urine Negative ng/mL (Cutoff=200); Benzodiazepines Screen,Urine Positive ng/mL (Cutoff=200); Cannabinoid Screen,Urine Positive ng/mL (Cutoff = 50); Cocaine Screen,Urine Negative ng/mL (Cutoff= 300); Opiate Screen,Urine Negative ng/mL (Cutoff=300); Phencyclidine Screen,Urine Negative ng/mL (Cutoff=25)
[2016-09-15 06:00] LABS: Alanine Aminotransferase 17 Units/L (0-55); Albumin 2.9 g/dL (3.5-5.0); Albumin/Globulin Ratio 0.7 (1.1-2.2); Alkaline Phosphatase 83 Units/L (38-126); Aspartate Amino Transferase 23 Units/L (5-34); BUN/Creatinine Ratio 15 (6-26); Bilirubin,Total 0.2 mg/dL (0.2-1.2); Blood Urea Nitrogen 12 mg/dL (7-20); Calcium 9.3 mg/dL (8.6-10.8); Carbon Dioxide 16 mEq/L (19-29); Chloride 109 mEq/L (98-109); Globulin 3.9 g/dL (2.4-3.5); Glucose 126 mg/dL (70-99); Magnesium 2.5 mg/dL (1.6-2.6); Osmolality,Calculated 287 (280-300); Phosphorous 3.2 mg/dL (2.3-4.7); Sodium 138 mEq/L (136-145); Total Protein 6.8 g/dL (6.0-8.3); eGFR For African Americans > 60 (> 60); eGFR For Non-African Americans > 60 (> 60)
[2016-09-15 06:02] LABS: Potassium 5.2 mEq/L (3.5-4.5)
[2016-09-15 06:47] VITALS: BP 99/64
[2016-09-15] MEDS ORDERED: Famotidine 20 MG TABLET PO SCH (09:00)
[2016-09-15] MEDS ORDERED: predniSONE 20 MG TABLET PO SCH (09:00)
[2016-09-15] MEDS: Doxycycline 100 MG CAPSULE PO SCH (09:06)
[2016-09-15] MEDS: Nicotine 21 MG PATCH.TD24 TD SCH (09:07)
[2016-09-15] MEDS: SUBOXONE SL SCH (09:07)
--- NOTE | 2016-09-15 09:51 | Discharge Summary ---
<Jeremy Edmonds - Last Filed: 09/15/16 10:19> Date of Encounter: 09/15/16 Time of Encounter: 09:47 - Discharge Diagnosis (1) Acute respiratory failure with hypoxia Priority: Primary Status: Acute (2) Acute bronchitis and bronchiolitis Priority: Primary Status: Acute (3) Tobacco abuse disorder Priority: Primary Status: Acute (4) Polysubstance abuse Priority: Primary Status: Acute Comments: Urine drug screen was positive for amphetamines, benzodiazepines and marijuana - Discharge Medications Prescriptions: Azithromycin [Azithromycin 6-Tab Pack] 250 mg PO PER PKG DI #6 tab PredniSONE 40 mg PO DAILY 4 Days Home Medications: Albuterol Sulfate [Albuterol Inhaler] 2 puff IH Q4HR PRN #1 hfa.aer.[email or web address] 09/14/16 [Rx] Buprenorphine HCl/Naloxone HCl [Suboxone 8 mg-2 mg Sl Film] 8 mg SL BID [History] Azithromycin [Azithromycin 6-Tab Pack] 250 mg PO PER PKG DI #6 tab 09/15/16 [Rx] PredniSONE 40 mg PO DAILY 4 Days 09/15/16 [Rx] Allergies/Adverse Reactions: Allergies Penicillins [PCN] Allergy (Verified 08/16/16 02:44) Anaphylaxis Date of admission: 09/14/16 20:46 Primary care physician: PCP SORAYA Consults: 09/14/16 21:32 Consult to Nurse Navigator [CONS] Routine Comment: Consult to Nurse Navigator [CONS] Routine Comment: - Patient Status Disposition: Home, Self-Care Condition: Good Functional capacity at discharge: independent ambulation Overall status at discharge: patient is progressing back to baseline - Discharge Instructions Instructions: Prednisone (By mouth), Azithromycin (By mouth), Asthma (DC), Acute Bronchitis (DC) Follow Up With: NO,PCP [Primary Care Provider] - Additional Instructions: I highly recommend follow-up with her primary care physician in the next 3-5 days. Complete antibiotics as prescribed -Return to the emergency department for reevaluation if recurrence of shortness of breath, new concerning medical symptoms or signs. - Diet and Activity Activity: increase activity as tolerated Diet: advance to your usual diet Interval History: Ms. Barbour is a 41 year old female with history significant for polysubstance abuse/IVDU and non-IVDU, h/o seizure dis unspecified, MSK/low back pain/deg osteoarthritis, RAD/asthma, nicotine dependency admitted to [facility] via the emergency department when she presents with complaints of a persistent cough and difficulty in breathing. She was admitted to general medical floor, started on doxycycline 100 mg twice a day, breathing treatments and prednisone by mouth. Nasal cannula oxygen to maintain oxygen saturations greater than 90% requiring 3-4 L. Patient was stable overnight and in the morning patient decided to she was well enough for discharge home. After thorough discussion and evaluation patient demonstrates signs of improvement maintaining oxygen saturation. 90% on room air. She was seen and evaluated and deemed stable for discharge with recommended close follow-up with her primary care provider in the next 3-5 days. She was provided a prescription for azithromycin and by mouth prednisone. She was recommended to complete her antibiotic course. Hospital course: Ms. Barbour is a 41 year old female - Time Spent with Patient Total time spent providing and/or coordinating discharge services: - Constitutional Vitals: Temp Pulse Resp BP Pulse Ox 98.0 F 72 16 99/64 91 09/15/16 06:46 09/15/16 06:46 09/15/16 06:46 09/15/16 06:46 09/15/16 06:46 General appearance: Present: disheveled, mild distress, A&O X 3, answers questions appropriately - Head Head exam: Present: atraumatic, normocephalic - Eye Eye exam: Present: PERRL, conjuntiva pink, sclera anicteric Pupils: Present: PERRL - ENT ENT exam: Present: mucous membranes moist - Neck Neck exam general surgery: Present: supple, trachea midline. Absent: lymphadenopathy - Respiratory Respiratory exam: Present: decreased breath sounds (On exhalation), wheezes Additional comments: Minimal wheezing with exhalation. - Cardiovascular Cardiovascular exam: Present: RRR, +S1, +S2. Absent: diastolic murmur, gallop, rubs, systolic murmur - GI/Abdominal GI/Abdominal exam: Present: normal bowel sounds, soft, no peritoneal signs. Absent: distended, tenderness - Extremities Exam Extremities exam: Present: warm, radial pulses palpable and symetrical. Absent : calf tenderness, cyanotic, pedal edema Additional comments: Patient moving all 4 extremities spontaneously - VTE Documentation of Mechanical Device: Graduated compression elastic hosiery <Slim Winkler - Last Filed: 09/15/16 11:54> Date of Encounter: 09/15/16 Date of admission: 09/14/16 20:46 Primary care physician: PCP NO Consults: 09/14/16 21:32 Consult to Nurse Navigator [CONS] Routine Comment: Consult to Nurse Navigator [CONS] Routine Comment: Hospital course: Ms. Barbour is a 41 year old female - Time Spent with Patient Total time spent providing and/or coordinating discharge services: - Constitutional Vitals: Temp Pulse Resp BP Pulse Ox 98.0 F 72 16 99/64 91 09/15/16 06:46 09/15/16 06:46 09/15/16 06:46 09/15/16 06:46 09/15/16 06:46 - Attending Attestation Acute hypoxic respiratory failure secondary to acute COPD exacerbation from acute bronchitis viral versus bacterial Continue prednisone and azithromycin at home. Time spent on this discharge 40 minutes
== END 2016-09-15 10:05 | disposition home or self-care (01) ==
LOC: 3BNU 17:19 → EMEROO 17:19 → SUATTDRO 20:46 → 3BNU 20:58
PROVIDERS: ADMIT Internal Medicine; ATTEND Internal Medicine